=== PATIENT | female | born 1935 | race Caucasian/White ===

== ENCOUNTER 2017-02-19 17:25 | Emergency (ER) | payer MEDICARE ==
[2017-02-19 17:17] LABS: INTERNATIONAL NORMAL RATI 2.1 UNITS (-)
[~2017-02-19 17:25] MED LIST: 8 HOUR650 MG PO; ACETASOL HC OT; ASAB PO; ASABAYER PO; AVAP150 PO; AVAPRO300 MG PO; BRILINTA90 MG PO; C5 PO; CALTRA600D PO; CORDARONE PO; CRESTOR40 MG PO; DSS PO; FISH-EPA1000 MG PO; GGDM5ML PO; HCTZ25B PO; KDUR10 PO; L20 PO; L40 PO; LEVOTHYROXIN100 MCG PO; METAMUCIL CAN7 OZ PO; METHOC500B PO; METPAKSF PO; MIRALAXPKT PO; MULTIPLE VIT PO; MULTIVIT/MIN PO; NORCO1 TA1 PO; OS500+D PO; REFRESH OPH SO0.3 ML OPH; SYN.05 PO; SYN1 PO; SYSTANE OP; SYSTANE OPH; TRIAMCINOLON0.13 TOP; TYLENOL ARTH650 MG PO; VITAMIN B-121000 MC1 SL
== END 2017-02-19 20:32 | disposition home or self-care (01) ==
LOC: ER 17:25
PROVIDERS: Emergency Medicine
DX: S00.83XA Contusion of other part of head, initial encounter (principal); S60.022A Contusion of left index finger without damage to nail, initial encounter; I50.9 Heart failure, unspecified; E78.00 Pure hypercholesterolemia, unspecified; I10 Essential (primary) hypertension; Z86.73 Personal history of transient ischemic attack (TIA), and cerebral infarction without residual deficits; K21.9 Gastro-esophageal reflux disease without esophagitis; Z88.2 Allergy status to sulfonamides; Z88.5 Allergy status to narcotic agent; Z88.8 Allergy status to other drugs, medicaments and biological substances; Z79.82 Long term (current) use of aspirin; Z79.899 Other long term (current) drug therapy; W19.XXXA Unspecified fall, initial encounter
CPT/HCPCS: 70450; 73130-LT; 85610; 93005; 99285

== ENCOUNTER 2017-02-22 23:32 | Emergency (ER) | payer MEDICARE ==
[2017-02-23 01:01] LABS: BASOPHILS 0.2 %; BASOPHILS ABSOLUTE 0.01 10/3/uL (0.0-0.16); EOSINOPHILS 1.5 %; EOSINOPHILS ABSOLUTE 0.07 10/3/uL (0.0-0.53); HEMATOCRIT 30.9 % (36.0-48.0); HEMOGLOBIN 10.5 g/dL (12.0-16.0); IMMATURE GRANULOCYTES 0.2 %; IMMATURE GRANULOCYTES ABSOLUTE 0.01 10/3/uL (0.0-0.11); LYMPHOCYTES 22.7 %; LYMPHOCYTES ABSOLUTE 1.03 10/3/uL (0.67-4.30); MEAN CORPUSCULAR HEMOGLOB 29.3 pg (26.0-34.0); MEAN CORPUSCULAR VOLUME 86.3 fL (80-100); MEAN PLATELET VOLUME 9.4 fL (9.2-13.0); MONOCYTES ABSOLUTE 0.59 10/3/uL (0.21-1.20); NEUTROPHILS 62.4 %; NEUTROPHILS ABSOLUTE 2.82 10/3/uL (2.02-8.40); PLATELET COUNT 252 10/3/uL (150-400); RBC DISTRIBUTION WIDTH 13.5 % (12.0-16.0); RED CELL COUNT 3.58 10/6/uL (4.0-5.6); WHITE BLOOD CELLS 4.5 10/3/uL (4.5-10.5)
[2017-02-23 01:03] LABS: MANUAL DIFF NO %
[2017-02-23 01:10] LABS: INTERNATIONAL NORMAL RATI 2.2 UNITS (-); PROTIME (NOT ORD) 24.4 SEC (12.0-14.5)
== END 2017-02-23 02:19 | disposition home or self-care (01) ==
LOC: ER 23:32
PROVIDERS: Specialist
DX: S80.02XA Contusion of left knee, initial encounter (principal); S00.11XA Contusion of right eyelid and periocular area, initial encounter; I48.91 Unspecified atrial fibrillation; Z86.73 Personal history of transient ischemic attack (TIA), and cerebral infarction without residual deficits; I10 Essential (primary) hypertension; Z88.2 Allergy status to sulfonamides; Z88.5 Allergy status to narcotic agent; Z88.8 Allergy status to other drugs, medicaments and biological substances; Z79.899 Other long term (current) drug therapy; W19.XXXA Unspecified fall, initial encounter
CPT/HCPCS: 70486; 73560-LT; 85025; 85610; 99284